=== PATIENT | female | born 1950 | race Caucasian/White ===

== ENCOUNTER 2016-11-28 15:50 | Emergency (ER) | payer MEDICARE, MEDICAID ==
[~2016-11-28] VITALS: Ht 165.1 cm; Wt 81.2 kg
[~2016-11-28 15:50] MED LIST: ACET650T10 PO; ARIP5TAB4 PO; ASPI325T2 PO; DICY20TA11 PO; DIGO125T PO; DOCU-170 PO; ESZO3TAB10 PO; FOLI1TAB16 PO; IPRA0.2S49 IH; LEVA1.257 IH; LEVO200T PO; LISI2.5T2 PO; METH4TAB3 PO; MONT10TA22 PO; NITR0.4T6 SL; OMEG1CAP PO; ONDA4TAB5 PO; PANT40TA4 PO; POTA20PA15 PO; RIVA10TA PO; ROSU20TA PO; SENN8.6C5 PO; SPIR25TA PO; TIOT18CA3 IH; VENL75TA54 PO; ZOLP5TAB2 PO; [UNRECOGNIZED DRUG - CODE] PO
--- NOTE | 2016-11-28 16:00 | NUR ---
EMA FROM [facility] FOR LEFT WRIST PAIN S/P FALL X 1 DAY. LEFT WRIST NOTED WITH SPLINT ON-- HOWEVER WITH SWELLING. PATIENT COMPLAINTS OF 8/10 PAIN. PATIENT REMAINS AAO4. APPEARS IN NO APPARENT DISTRESS. RESPIRATION EVEN AND UNLABORED./VSS
[2016-11-28] MEDS ORDERED: HYDROCODONE/APAP 5/325MG 1 EACH TABLET ONE (16:49)
--- NOTE | 2016-11-28 16:52 | NUR ---
MEDICATED PT ASORDERED
[2016-11-28] MEDS ORDERED: HYDROCODONE/APAP 5/325MG 1 EACH TABLET PO ONE (17:00)
--- NOTE | 2016-11-28 17:39 | NUR ---
CALLED [facility] FOR TRANSPORT SPOKE WITH AMISHA, ETA OF 20 MINS WAS GIVEN.
--- NOTE | 2016-11-28 18:15 | NUR ---
AWAITING FOR [facility] TO SENIOR APPLICATIONS ARCHITECT PATIENT
[2016-11-28 18:31] VITALS: BP 130/80
== END 2016-11-28 18:35 | disposition home or self-care (01) ==
LOC: ER 15:52
DX: S52.512A Displaced fracture of left radial styloid process, initial encounter for closed fracture (principal); L03.115 Cellulitis of right lower limb; L03.116 Cellulitis of left lower limb; E11.9 Type 2 diabetes mellitus without complications; I10 Essential (primary) hypertension; F17.200 Nicotine dependence, unspecified, uncomplicated; Z79.01 Long term (current) use of anticoagulants; Z79.82 Long term (current) use of aspirin; Z88.8 Allergy status to other drugs, medicaments and biological substances; Z91.041 Radiographic dye allergy status; Z91.040 Latex allergy status; Z91.048 Other nonmedicinal substance allergy status; W19.XXXA Unspecified fall, initial encounter; Y93.89 Activity, other specified; Y92.89 Other specified places as the place of occurrence of the external cause; Y99.8 Other external cause status
CPT/HCPCS: 73110; A4606; Z7610

== ENCOUNTER 2017-02-15 22:36 | Emergency (ER) | payer MEDICARE, MEDICAID ==
[~2017-02-15] VITALS: Ht 162.6 cm; Wt 72.6 kg
--- NOTE | 2017-02-15 23:30 | NUR ---
started sl 18g to R forearm, blood drawn and sent to lab.
--- NOTE | 2017-02-15 23:42 | NUR ---
urine sample collected and sent to lab.
[2017-02-15 23:50] LABS: BASOPHILS # (AUTO) 0.1 /CMM (0.0-0.2); BASOPHILS % (AUTO) 0.8 % (0.0-2.0); EOSINOPHILS # (AUTO) 0.4 /CMM (0.0-0.7); EOSINOPHILS % (AUTO) 4.6 % (0.0-6.0); HEMATOCRIT 37 % (33-45); HEMOGLOBIN 12.6 g/dL (11.5-14.8); LYMPHOCYTES # (AUTO) 2.9 /CMM (0.8-4.8); LYMPHOCYTES % (AUTO) 31.9 % (20.0-44.0); MEAN CORPUSCULAR HEMOGLOBIN 30 PG (26.0-33.0); MEAN CORPUSCULAR HGB CONC 34 g/dl (31.0-36.0); MEAN CORPUSCULAR VOLUME 89 fL (82-100); MONOCYTES # (AUTO) 0.9 /CMM (0.1-1.30); MONOCYTES % (AUTO) 9.8 % (2.0-12.0); NEUTROPHILS # (AUTO) 4.8 /CMM (1.8-8.9); NEUTROPHILS % (AUTO) 52.9 % (43.0-81.0); PLATELET COUNT (AUTO) 244 /CMM (150-450); RED BLOOD CELL COUNT(AUTO) 4.19 MIL/uL (4.0-5.2); WHITE BLOOD COUNT (AUTO) 9.1 K/uL (4.3-11.0)
[2017-02-15 23:57] LABS: APPEARANCE,URINE SL CLOUDY (CLEAR); BILIRUBIN,URINE NEGATIVE (NEGATIVE); BLOOD, URINE NEGATIVE Ery/uL (NEGATIVE); COLOR,URINE YELLOW (YELLOW); KETONES,URINE NEGATIVE (NEGATIVE); LEUKOCYTE ESTERASE ,URINE NEGATIVE (NEGATIVE); NITRITE, URINE NEGATIVE (NEGATIVE); PROTEIN,URINE NEGATIVE (NEGATIVE); UGLUCOSE NEGATIVE (NEGATIVE); UROBILINOGEN,URINE 0.2 EU/dL (0.2)
[2017-02-15 23:58] LABS: CALCIUM, SERUM 8.6 mg/dL (8.5-10.1); CREATININE 0.9 mg/dL (0.6-1.3); POTASSIUM 4.1 mmol/L (3.5-5.1)
[2017-02-16 00:03] LABS: INR 0.92 (0.87-1.13); PROTHROMBIN TIME 9.6 SECS (9.5-12.7)
[2017-02-16 00:05] LABS: ALBUMIN 3.2 g/dL (3.4-5.0); BILIRUBIN,TOTAL 0.2 mg/dL (0.2-1.0); TOTAL PROTEIN, SERUM 7.1 g/dL (6.4-8.2)
--- NOTE | 2017-02-16 01:19 | NUR ---
ct result received. er md made aware. pending disposition.
--- NOTE | 2017-02-16 02:34 | NUR ---
IV removed. Catheter intact and site benign. Pressure and 4x4 applied to site. No bleeding noted.
--- NOTE | 2017-02-16 02:36 | NUR ---
transport at bedside report given to emt.
[2017-02-16 02:39] VITALS: BP 127/63
== END 2017-02-16 02:40 | disposition home or self-care (01) ==
LOC: ER 22:39
DX: K59.00 Constipation, unspecified (principal); R10.9 Unspecified abdominal pain; E03.9 Hypothyroidism, unspecified; E11.9 Type 2 diabetes mellitus without complications; F17.210 Nicotine dependence, cigarettes, uncomplicated; F32.9 Major depressive disorder, single episode, unspecified; F41.9 Anxiety disorder, unspecified; G40.909 Epilepsy, unspecified, not intractable, without status epilepticus; I11.0 Hypertensive heart disease with heart failure; I50.9 Heart failure, unspecified; J44.9 Chronic obstructive pulmonary disease, unspecified; N28.1 Cyst of kidney, acquired; N83.202 Unspecified ovarian cyst, left side; Z79.01 Long term (current) use of anticoagulants; Z79.82 Long term (current) use of aspirin; Z88.5 Allergy status to narcotic agent; Z88.6 Allergy status to analgesic agent; Z88.8 Allergy status to other drugs, medicaments and biological substances; Z91.040 Latex allergy status
CPT/HCPCS: 36415; 71010; 74176; 80048; 80076; 80162; 81001; 83690; 85025; 85730; 93005; 99285; A4606; 81000-TC; Z7610

== ENCOUNTER 2017-03-16 06:31 | Emergency (ER) | payer MEDICARE, MEDICAID ==
[~2017-03-16] VITALS: Ht 162.6 cm; Wt 63.5 kg
--- NOTE | 2017-03-16 06:35 | NUR ---
TO BED 2 A 66 YO FEMALE PT [facility]IBA#889 FROM [facility] S/P GLF 1 HOUR AGO, PT C/O HEAD KNEE AND LEG PAIN, NO LOC. PATIENT IS ALERT AND RESPONSIVE, NAD NOTED. VSS. COMFORT AND SAFETY MEASURES PROVIDED.
--- NOTE | 2017-03-16 06:49 | NUR ---
Dr Martinez at bedside to eval.
[2017-03-16] MEDS ORDERED: TRAMADOL HCL 50 MG TABLET PO ONE (07:00)
[2017-03-16] MEDS ORDERED: TRAMADOL HCL 50 MG TABLET ONE (07:22)
[2017-03-16 07:26] LABS: BASOPHILS % (AUTO) 0.3 % (0.0-2.0); EOSINOPHILS # (AUTO) 0.3 /CMM (0.0-0.7); EOSINOPHILS % (AUTO) 2.3 % (0.0-6.0); HEMATOCRIT 44 % (33-45); HEMOGLOBIN 14.3 g/dL (11.5-14.8); LYMPHOCYTES # (AUTO) 2.5 /CMM (0.8-4.8); LYMPHOCYTES % (AUTO) 18.7 % (20.0-44.0); MEAN CORPUSCULAR HEMOGLOBIN 29 PG (26.0-33.0); MEAN CORPUSCULAR HGB CONC 33 g/dl (31.0-36.0); MEAN CORPUSCULAR VOLUME 89 fL (82-100); MONOCYTES # (AUTO) 1.1 /CMM (0.1-1.30); MONOCYTES % (AUTO) 8.2 % (2.0-12.0); NEUTROPHILS # (AUTO) 9.3 /CMM (1.8-8.9); NEUTROPHILS % (AUTO) 70.5 % (43.0-81.0); PLATELET COUNT (AUTO) 244 /CMM (150-450); RDW COEFFICIENT OF VARIATION 15.1 (11.5-15.0); RED BLOOD CELL COUNT(AUTO) 4.92 MIL/uL (4.0-5.2); WHITE BLOOD COUNT (AUTO) 13.2 K/uL (4.3-11.0)
--- NOTE | 2017-03-16 07:40 | NUR ---
ASSISTED PT IN BEDPAN. PT NOTED IN SOILED CLOTHES, CLEANED AND CHANGED PER PROTOCOL.
[2017-03-16 07:41] LABS: CALCIUM, SERUM 9.2 mg/dL (8.5-10.1)
[2017-03-16 07:45] LABS: INR 0.92 (0.87-1.13); PROTHROMBIN TIME 9.6 SECS (9.5-12.7)
[2017-03-16] MEDS ORDERED: INSU100I19 SQ (07:55)
[2017-03-16] MEDS ORDERED: MELA3TAB PO (07:55)
[2017-03-16] MEDS ORDERED: BISA10SU8 RC (07:55)
[2017-03-16] MEDS ORDERED: SODI1TAB3 PO (07:55)
[2017-03-16] MEDS ORDERED: FLUT1BLS IH (07:55)
[2017-03-16] MEDS ORDERED: LIDO30AD10 TP (07:55)
[2017-03-16] MEDS ORDERED: BLOO-668 IN (07:55)
[2017-03-16] MEDS ORDERED: NA P133E RC (07:55)
[2017-03-16] MEDS ORDERED: GLYB2.5T4 PO (07:55)
[2017-03-16] MEDS ORDERED: MAGN400O6 PO (07:55)
[2017-03-16] MEDS ORDERED: CHOL100044 PO (07:55)
[2017-03-16] MEDS ORDERED: CALC500T52 PO (07:55)
[2017-03-16] MEDS ORDERED: ASCO500T9 PO (07:55)
[2017-03-16] MEDS ORDERED: BISA5TAB10 PO (07:55)
[2017-03-16] MEDS ORDERED: ACET500T86 PO (07:55)
[2017-03-16] MEDS ORDERED: MORP100S3 PO (07:55)
[2017-03-16] MEDS ORDERED: AMIN30LI4 PO (07:55)
[2017-03-16] MEDS ORDERED: POLY17PO4 PO (07:55)
[2017-03-16] MEDS ORDERED: LEVO150T8 PO (07:55)
[2017-03-16] MEDS ORDERED: PREG75CA PO (07:55)
[2017-03-16] MEDS ORDERED: BENEFIBER PO (07:55)
[2017-03-16] MEDS ORDERED: INSU100V11 SQ (07:55)
[2017-03-16] MEDS ORDERED: DIPH25CA6 PO (07:55)
[2017-03-16] MEDS ORDERED: TRAM50TA2 PO (07:55)
[2017-03-16] MEDS ORDERED: LORA0.5T PO (07:55)
--- NOTE | 2017-03-16 08:21 | NUR ---
PT TAKEN TO CT.
--- NOTE | 2017-03-16 09:40 | NUR ---
BRENT MOONEY AND AT FOR WOUND CARE/TX.
--- NOTE | 2017-03-16 11:00 | NUR ---
CALLED [facility] FOR TRANSPORTATION ETA [phone]
--- NOTE | 2017-03-16 11:40 | NUR ---
CALLED [facility] AND MADE THEM AWARE OF PT GOING BACK TO THEIR FACILITY.
[2017-03-16 12:10] VITALS: BP 149/88
== END 2017-03-16 12:18 | disposition home or self-care (01) ==
LOC: ER 06:33
DX: S01.01XA Laceration without foreign body of scalp, initial encounter (principal); E11.40 Type 2 diabetes mellitus with diabetic neuropathy, unspecified; D72.829 Elevated white blood cell count, unspecified; J44.9 Chronic obstructive pulmonary disease, unspecified; I10 Essential (primary) hypertension; Z88.5 Allergy status to narcotic agent; Z88.8 Allergy status to other drugs, medicaments and biological substances; Z91.040 Latex allergy status; W17.89XA Other fall from one level to another, initial encounter; Y93.89 Activity, other specified; Y99.8 Other external cause status; Y92.89 Other specified places as the place of occurrence of the external cause; R79.1 Abnormal coagulation profile; I70.0 Atherosclerosis of aorta; F17.200 Nicotine dependence, unspecified, uncomplicated
CPT/HCPCS: 12001; 36415; 70450; 71010; 72100; 72125; 73030 ×2; 73120 ×2; 73620; 80048; 80162; 85025; 85730; 93005; 99285; A4606; A6402; L0172; Z7610

== ENCOUNTER 2017-03-29 17:45 | Emergency (ER) | payer MEDICARE, MEDICAID ==
[~2017-03-29] VITALS: Ht 152.4 cm; Wt 90.7 kg
[~2017-03-29 17:45] MED LIST changes: +ACET500T86 PO; -ACET650T10 PO; +AMIN30LI4 PO; -ARIP5TAB4 PO; +ASCO500T9 PO; -ASPI325T2 PO; +BENEFIBER PO; +BISA10SU8 RC; +BISA5TAB10 PO; +BLOO-668 IN; +CALC500T52 PO; +CHOL100044 PO; -DICY20TA11 PO; +DIPH25CA6 PO; -ESZO3TAB10 PO; +FLUT1BLS IH; -FOLI1TAB16 PO; +GLYB2.5T4 PO; +INSU100I19 SQ; +INSU100V11 SQ; -IPRA0.2S49 IH; -LEVA1.257 IH; +LEVO150T8 PO; -LEVO200T PO; +LIDO30AD10 TP; -LISI2.5T2 PO; +LORA0.5T PO; +MAGN400O6 PO; +MELA3TAB PO; -METH4TAB3 PO; -MONT10TA22 PO; +MORP100S3 PO; +NA P133E RC; -NITR0.4T6 SL; -OMEG1CAP PO; -ONDA4TAB5 PO; -PANT40TA4 PO; +POLY17PO4 PO; -POTA20PA15 PO; +PREG75CA PO; -RIVA10TA PO; -ROSU20TA PO; -SENN8.6C5 PO; +SODI1TAB3 PO; -SPIR25TA PO; -TIOT18CA3 IH; +TRAM50TA2 PO; -ZOLP5TAB2 PO; -[UNRECOGNIZED DRUG - CODE] PO
--- NOTE | 2017-03-29 18:10 | NUR ---
GEORGETTE FROM [facility] C/O POSTERIOR HEAD PAIN S/P GLF. SEEN BY MD FOR EVAL. VSS. SAFETY AND COMFORT MEASURES PROVIDED. WILL MONITOR.
--- NOTE | 2017-03-29 18:27 | NUR ---
CALLED RT FOR BREATHING TX.
[2017-03-29] MEDS ORDERED: ALBUTEROL FS 2.5 MG/3 ML VIAL.NEB NEB ONE (18:30)
[2017-03-29] MEDS ORDERED: IPRATROPIUM NEB FS 0.5 MG/2.5 ML AMPUL.NEB NEB ONE (18:30)
[2017-03-29] MEDS ORDERED: ALBUTEROL FS 2.5 MG/3 ML VIAL.NEB ONE (18:33)
[2017-03-29] MEDS ORDERED: IPRATROPIUM NEB FS 0.5 MG/2.5 ML AMPUL.NEB ONE (18:33)
--- NOTE | 2017-03-29 18:40 | NUR ---
PT TAKEN TO CT.
--- NOTE | 2017-03-29 19:42 | NUR ---
[facility] TRANSPORT AT BEDSIDE REPORT GIVEN TO EMT.
[2017-03-29 19:43] VITALS: BP 146/73
== END 2017-03-29 19:43 | disposition home or self-care (01) ==
LOC: ER 17:46
DX: S09.90XA Unspecified injury of head, initial encounter (principal); J44.9 Chronic obstructive pulmonary disease, unspecified; E11.9 Type 2 diabetes mellitus without complications; G89.29 Other chronic pain; I10 Essential (primary) hypertension; M48.00 Spinal stenosis, site unspecified; F17.200 Nicotine dependence, unspecified, uncomplicated; Z66 Do not resuscitate; Z79.4 Long term (current) use of insulin; Z88.5 Allergy status to narcotic agent; Z88.8 Allergy status to other drugs, medicaments and biological substances; Z88.6 Allergy status to analgesic agent; Z91.040 Latex allergy status; W18.30XA Fall on same level, unspecified, initial encounter; Y93.89 Activity, other specified; Y92.89 Other specified places as the place of occurrence of the external cause; Y99.8 Other external cause status
CPT/HCPCS: 70450; 94640; 99284; A4606; Z7610

== ENCOUNTER 2017-05-15 02:05 | Emergency (ER) | payer MEDICARE, MEDICAID ==
[~2017-05-15] VITALS: Ht 167.6 cm; Wt 68.0 kg
[~2017-05-15 02:05] MED LIST changes: +ACET-637 PO; -ACET500T86 PO; -DOCU-170 PO; +DOCU100C36 PO
[2017-05-15 02:06] VITALS: BP 131/83
--- NOTE | 2017-05-15 02:29 | NUR ---
66 YO FEMALE BB RA. PATIENT IS A/O X 3, PER EMS, PATIENT WAS PICKED UP FROM HER NURSING FACILITY, WHERE SHE HAS BEEN DISCHARGED AND NO LONGER HAS A BED AVAILABLE. PATIENT SKIN WARM AND DRY, RESP EVEN AND UNLABORED. NO DISTRESS NOTED, WILL CONTINUETO MONITOR
[2017-05-15] MEDS ORDERED: HYDROCODONE/APAP 10/325MG 1 EA TABLET PO ONE (03:00)
[2017-05-15] MEDS ORDERED: ONDANSETRON 4 MG TAB.RAPDIS SL ONE (03:00)
[2017-05-15] MEDS ORDERED: HYDROCODONE/APAP 10/325MG 1 EA TABLET ONE (04:10)
[2017-05-15] MEDS ORDERED: ONDANSETRON 4 MG TAB.RAPDIS ONE (04:11)
== END 2017-05-15 07:49 | disposition home or self-care (01) ==
LOC: ER 02:06
DX: M54.5 Low back pain (principal); Z71.6 Tobacco abuse counseling; E11.9 Type 2 diabetes mellitus without complications; I10 Essential (primary) hypertension; M48.00 Spinal stenosis, site unspecified; R56.9 Unspecified convulsions; F17.200 Nicotine dependence, unspecified, uncomplicated; Z79.4 Long term (current) use of insulin; Z88.5 Allergy status to narcotic agent; Z88.6 Allergy status to analgesic agent; Z88.8 Allergy status to other drugs, medicaments and biological substances; Z91.040 Latex allergy status; W01.0XXA Fall on same level from slipping, tripping and stumbling without subsequent striking against object, initial encounter; Y93.89 Activity, other specified; Y92.89 Other specified places as the place of occurrence of the external cause; Y99.8 Other external cause status
CPT/HCPCS: 72100; 72170; 99284; 99406; A4606; Q0162; Z7610

== ENCOUNTER 2017-05-16 17:59 | Emergency (ER) | payer MEDICARE, MEDICAID ==
[~2017-05-16] VITALS: Ht 165.1 cm; Wt 74.8 kg
[2017-05-16 18:00] VITALS: BP 119/60
== END 2017-05-16 19:47 | disposition left against medical advice (07) ==
LOC: ER 18:01
DX: Z53.21 Procedure and treatment not carried out due to patient leaving prior to being seen by health care provider (principal)
CPT/HCPCS: A4606; Z7610

== ENCOUNTER 2017-05-16 20:24 | Emergency (ER) | payer MEDICARE, MEDICAID ==
[~2017-05-16] VITALS: Ht 167.6 cm; Wt 68.0 kg
--- NOTE | 2017-05-17 03:11 | NUR ---
PT BIB SELF, PT C/O LEFT FOOT PAIN AND INFECTION. PT AOX3 RR EVEN AND UNLABORED. NO SOB NOTED. NAD NOTED. NO NVD AT THIS TIME. PT GOWNED AND PLACED ON MONITOR WAITING FOR MD KING
--- NOTE | 2017-05-17 03:20 | NUR ---
DR. CORDOVA AT BEDSIDE FOR EVAL
--- NOTE | 2017-05-17 03:31 | NUR ---
PT REFUSED CXR PER RADIOLOGY. RISK AND BENEFITS EXPLAINED. PT STRONGLY REFUSED
[2017-05-17 03:59] LABS: BASOPHILS # (AUTO) 0.5 /CMM (0.0-0.2); BASOPHILS % (AUTO) 4.9 % (0.0-2.0); EOSINOPHILS # (AUTO) 0.1 /CMM (0.0-0.7); EOSINOPHILS % (AUTO) 0.5 % (0.0-6.0); HEMATOCRIT 42 % (33-45); HEMOGLOBIN 14.1 g/dL (11.5-14.8); LYMPHOCYTES # (AUTO) 1.4 /CMM (0.8-4.8); MEAN CORPUSCULAR HEMOGLOBIN 30 PG (26.0-33.0); MEAN CORPUSCULAR HGB CONC 34 g/dl (31.0-36.0); MEAN CORPUSCULAR VOLUME 89 fL (82-100); MONOCYTES # (AUTO) 0.6 /CMM (0.1-1.30); MONOCYTES % (AUTO) 5.7 % (2.0-12.0); NEUTROPHILS # (AUTO) 8.2 /CMM (1.8-8.9); NEUTROPHILS % (AUTO) 75.9 % (43.0-81.0); PLATELET COUNT (AUTO) 108 /CMM (150-450); RDW COEFFICIENT OF VARIATION 16.8 (11.5-15.0); RED BLOOD CELL COUNT(AUTO) 4.72 MIL/uL (4.0-5.2); WHITE BLOOD COUNT (AUTO) 10.8 K/uL (4.3-11.0)
--- NOTE | 2017-05-17 04:32 | NUR ---
TSERING AT BEDSIDE
[2017-05-17 04:41] LABS: INR 0.91 (0.87-1.13); PROTHROMBIN TIME 9.5 SECS (9.5-12.7)
[2017-05-17 04:44] LABS: CALCIUM, SERUM 8.8 mg/dL (8.5-10.1); CREATININE 0.9 mg/dL (0.6-1.3); POTASSIUM 3.7 mmol/L (3.5-5.1)
[2017-05-17 04:49] LABS: TROPONIN I 0.055 ng/mL (0.00-0.056)
[2017-05-17] MEDS ORDERED: INSULIN REGULAR, HUMAN 100 UNIT/ML 3 ML VIAL IV ONE (05:00)
--- NOTE | 2017-05-17 05:02 | NUR ---
10 UNITS OF INSULIN VERIFIED
--- NOTE | 2017-05-17 05:53 | NUR ---
KHLOE NOTED 499. DR CORDOVA MADE AWARE
[2017-05-17 05:59] LABS: APPEARANCE,URINE SL CLOUDY (CLEAR); BILIRUBIN,URINE NEGATIVE (NEGATIVE); BLOOD, URINE NEGATIVE Ery/uL (NEGATIVE); COLOR,URINE YELLOW (YELLOW); KETONES,URINE TRACE (NEGATIVE); LEUKOCYTE ESTERASE ,URINE NEGATIVE (NEGATIVE); NITRITE, URINE NEGATIVE (NEGATIVE); PH,URINE 8.5 (5.0-8.0); PROTEIN,URINE NEGATIVE (NEGATIVE); UGLUCOSE 3+ mg/dL (NEGATIVE); UROBILINOGEN,URINE 0.2 EU/dL (0.2)
[2017-05-17 06:05] LABS: BACTERIA,URINE Many /HPF (None Seen); RBC,URINE 0-2 /HPF (0-2); SQUAMOUS EPITHELIAL CELL,UR Rare /HPF (None Seen); TRIPLE PHOSPHATE CRYSTAL,UR Few /HPF (None Seen)
--- NOTE | 2017-05-17 06:40 | NUR ---
PER TSERING, PT REFUSED LEFT LEG US. RISK AND BENEFITS EXPLAINED X3. PT STRONGLY REUSED. DR. CARBAJAL MADE AWARE
--- NOTE | 2017-05-17 07:01 | NUR ---
Patient does not wish to proceed with medical care recommended by Dr. Garcia. Patient given information related to possible complications, up to and including , which could occur as a result of leaving the hospital at this time. Patient verbalizes understanding of risks involved due to leaving against medical advice. Patient has refused to signed AMA form. dr. Garcia made aware. IV removed. Catheter intact and site benign. Pressure and 4x4 applied to site. No bleeding noted.
[2017-05-17 07:06] VITALS: BP 126/77
== END 2017-05-17 07:06 | disposition left against medical advice (07) ==
LOC: ER 20:26
DX: E11.51 Type 2 diabetes mellitus with diabetic peripheral angiopathy without gangrene (principal); E11.65 Type 2 diabetes mellitus with hyperglycemia; I10 Essential (primary) hypertension; M48.00 Spinal stenosis, site unspecified; R56.9 Unspecified convulsions; F17.200 Nicotine dependence, unspecified, uncomplicated; Z88.5 Allergy status to narcotic agent; Z88.6 Allergy status to analgesic agent; Z88.8 Allergy status to other drugs, medicaments and biological substances; Z91.040 Latex allergy status; Z79.4 Long term (current) use of insulin
CPT/HCPCS: 36415; 80048; 81001; 82962; 84484; 85025; 85730; 87086; 93005; 93926; 93930; 93970; 96374; 99285; A4606; J1815; 81000-TC; Z7610

== ENCOUNTER 2017-05-17 22:42 | Emergency (ER) | payer MEDICARE, MEDICAID ==
--- NOTE | 2017-05-18 01:10 | NUR ---
INFROMED BY SECURITY PT WALKED OUT OF LOBBY AND LEFT
== END 2017-05-18 01:11 | disposition left against medical advice (07) ==
LOC: ER 22:51
DX: Z53.21 Procedure and treatment not carried out due to patient leaving prior to being seen by health care provider (principal)

== ENCOUNTER 2017-05-18 03:18 | Emergency (ER) | payer MEDICARE, MEDICAID ==
--- NOTE | 2017-05-18 04:45 | NUR ---
NOT IN EITHER LOBBY. WILL CALL BACK
--- NOTE | 2017-05-18 05:32 | NUR ---
INFORMED "PT IN RESTROOM"
--- NOTE | 2017-05-18 06:00 | NUR ---
CALLED FOR TRIAGE; NOT IN LOBBY
--- NOTE | 2017-05-18 06:38 | NUR ---
CALLED AGAIN; NO ANSWER
--- NOTE | 2017-05-18 06:53 | NUR ---
CALLED AGAIN; NO ANSWER
== END 2017-05-18 06:54 | disposition left against medical advice (07) ==
LOC: ER 03:20
DX: Z53.21 Procedure and treatment not carried out due to patient leaving prior to being seen by health care provider (principal)